=== PATIENT | male | born 1950 | race Caucasian/White ===

== ENCOUNTER 2022-11-15 11:59 | Emergency (ER) | payer BC, MEDICARE, OTHER ==
[~2022-11-15] VITALS: Ht 172.7 cm; Wt 98.6 kg
[2022-11-15] MEDS ORDERED: NIRM1TAB (12:19)
[2022-11-15 12:47] LABS: BASO # 0.1 10^3/uL (0.0-0.2); BASO % 1.1 % (0.0-1.0); EOS # 0.3 10^3/uL (0.0-0.5); EOS % 3.8 % (0.0-3.0); HEMATOCRIT 37.2 % (42.0-52.0); LYMPH # 1.7 10^3/uL (1.5-5.0); LYMPH % 22.6 % (24.0-44.0); MEAN CORPUSCULAR HEMOGLOBIN 36.9 pg (27.0-33.0); MEAN CORPUSCULAR HGB CONC 34.9 g/dl (32.0-36.5); MEAN CORPUSCULAR VOLUME 105.7 fl (80.0-96.0); MONO # 0.5 10^3/uL (0.0-0.8); NEUTROPHILS # 4.8 10^3/uL (1.5-8.5); NEUTROPHILS % 64.6 % (36.0-66.0); PLATELET COUNT, AUTOMATED 218 10^3/uL (150-450); RED BLOOD COUNT 3.52 10^6/uL (4.30-6.10); WHITE BLOOD COUNT 7.5 10^3/uL (4.0-10.0)
[2022-11-15 13:01] LABS: D-DIMER QUANT 328.43 ng/ml (<500)
[2022-11-15 13:09] LABS: LIPASE 29 U/L (12-53)
[2022-11-15 13:12] LABS: ALBUMIN 4.2 G/DL (3.2-5.2); ALKALINE PHOSPHATASE 69 U/L (46-116); ALT/SGPT 22 U/L (7.0-40); AST/SGOT 12 U/L (<34); BILIRUBIN,DIRECT 0.3 MG/DL (<0.4); BLOOD UREA NITROGEN 15 MG/DL (9-23); CALCIUM LEVEL 8.6 MG/DL (8.3-10.6); CARBON DIOXIDE LEVEL 23 MMOL/L (20-31); CHLORIDE LEVEL 109 MMOL/L (98-107); CK-MB VALUE MASS < 1.0 NG/ML (<3.6); CPK CREATINE PHOSPHOKINASE 35 U/L (46-171); GLOMERULAR FILTRATION RATE > 60.0 (>42); GLUCOSE, FASTING 118 MG/DL (74-106); MB/CK RELATIVE INDEX 2.85 (< OR =4); POTASSIUM SERUM 4.1 MMOL/L (3.5-5.1); SODIUM LEVEL 141 MMOL/L (136-145); TOTAL PROTEIN 6.6 G/DL (5.7-8.2)
[2022-11-15 13:13] LABS: FREE T4 0.93 NG/DL (0.89-1.76)
[2022-11-15 13:14] LABS: THYROID STIMULATING HORMONE 1.065 uIU/ML (0.55-4.78)
[2022-11-15] MEDS ORDERED: ADENOSINE 6MG 2ML INJECTION IV STA ×3 (13:26)
[2022-11-15 13:40] LABS: INR 0.91; PARTIAL THROMBOPLASTIN TIME 29.3 SECONDS (24.8-34.2); PROTHROMBIN TIME 12.4 SECONDS (12.5-14.5)
[2022-11-15 13:42] LABS: MAGNESIUM LEVEL 2.1 MG/DL (1.8-2.4)
[2022-11-15 14:40] LABS: CPK CREATINE PHOSPHOKINASE 29 U/L (46-171)
[2022-11-15 14:41] LABS: CK-MB VALUE MASS < 1.0 NG/ML (<3.6); MB/CK RELATIVE INDEX 3.44 (< OR =4)
[2022-11-15] MEDS ORDERED: METOPROLOL SUCC *XL* 25MG TAB (TopROL *XL*) PO ONE (15:25)
[2022-11-15] MEDS ORDERED: METO1TAB32 PO (15:25)
[2022-11-15 15:30] VITALS: BP 113/72; TEMP 97.6; O2SAT 100
[2022-11-15 15:44] VITALS: BP 113/72
== END 2022-11-15 16:04 | disposition home or self-care (01) ==
LOC: M ED 11:59
DX: I47.1 Supraventricular tachycardia (principal)
CPT/HCPCS: 71045; 80048; 80076; 82550; 82553; 83690; 83735; 83880; 84439; 84443; 84484; 85025; 85379; 85610; 85730; 93005; 93041; 94760; 96374; 96376; 99285; J0153